=== PATIENT | female | born 1970 | race Caucasian/White ===

== ENCOUNTER 2020-12-09 14:32 | Emergency (ER) | payer OTHER ==
[~2020-12-09] VITALS: Ht 167.6 cm; Wt 120.2 kg
--- NOTE | ~2020-12-09 | EMS ---
[facility] [address] [place] [address] EMS Patient Care Report Name: VANI SMITH Room: [facility] CINTIA Campoverde#: [id number] Admission: 12/09/20 Attend Phys: Discharge: 12/09/20 Date of : 74 Report #: [id number] THIS REPORT FOR: //name// Report Transmitted: 12/09/2020 17:12 EMS Care Summary [facility] [place] Incident [id number] @ 12/09/2020 14:00 Incident Location [address] [place] [address] Patient VANI SMITH Female, 50 Years 1970 Patient Address [address] [place] [address] Patient History Endocrine Condition - Other, Patient Allergies , Patient Medications , Chief Complaint Shortness of Breath Disposition Transported No Lights/[place] Dispatch Reason Breathing Problem Transported To [facility] Narrative [facility] WAS DISPATCHED TO A FEMALE WITH SHORTNESS OF BREATH. ON SCENE THE PATIENT WAS SITTING ON THE GROUND BEHIND THE CUSTOMER SERVICE DESK. THE PATIENT WAS SITTING ON THE GROUND CRYING. PATIENT STATED THAT THIS HAS HAPPENED BEFORE BEFORE THE DOCTORS DIDN'T DIAGNOSE WITH HER WITH ANYTHING. PATIENT HAD CLEAR [facility] [address] [place] [address] EMS Patient Care Report Name: VANI SMITH [id number] Admission: 12/09/20 Attend Phys: Discharge: 12/09/20 Date of : 74 Report #: [id number] LUNG SOUNDS AND HER VITALS WERE ASSESSED. PATIENT WAS ASKED IF SHE WANTED TO GO THE AMBULANCE SO THERE WAS MORE PRIVACY. THE PATIENT ASKED FOR O ASK ONE HER CO-WORKERS TO GET HER PERSONAL THINGS. HER CO-WORKER WALKED HER PERSONAL THINGS BEHIND US THE patient WAS BEING TAKEN TO THE AMBULANCE. IN THE AMBULANCE, patients WAS PLACE ON OXYGEN FOR COMFORT AND WAS COACHED THROUGH HER BREATHING. THE PATIENTS BLOOD SUGAR WAS ASSESSED. PATIENT WAS ASKED WHAT HOSPITAL SHE WANTED TO GO TO. THE PATIENT STATED THAT SHE IS KNEW AROUND HERE. PATIENT STATED SHE LIVES IN [facility], PATIENT WAS TOLD THAT THE CLOSED HOSPITAL TO HOME FROM HERE IS [facility] PATIENT AGREED. WHILE IN ROUTE PATIENT WAS ABLE TO GIVE ALL MEDICAL AND DEMOGRAPHIC information. PATIENT WAS TRANSPORTED IN POSITION OF comfort. THERE WAS NO notable change IN PATIENT CONDITION. patient WAS ALERT AND oriented. patient FELT ALOT BETTER WHILE IN ROUTE, PATIENT WAS ABLE TO SLOW HER BREATHING DOWN AND SHE FELT MUCH BETTER. PATIENT WAS ABLE TO SIGN FOR HERSELF. AT THE HOSPITAL THE PATIENT WAS TAKEN TO ROOM 3. THERE THE PATIENT WAS ALLOWED TO STAND UP AND WALK. PATIENT INFORMATION WAS GIVEN TO A NURSE, AND REPORT WAS GIVEN TO RECEIVING NURSE. THE NURSE SIGNED FOR PATIENT CARE. A FACESHEET WAS obtained AND EMS DEPARTED THE HOSPITAL. --END-- Initial Vitals @14:10SpO2: 100, @14:11SpO2: 100, @14:12SpO2: 100, @14:16SpO2: 100, @14:20SpO2: 100, @14:21SpO2: 100, @14:23SpO2: 100, @14:24SpO2: 100, @14:25SpO2: 100, @14:26SpO2: 100, @14:10P: 97,R: 24,BP: 159/99, @14:26P: 84,R: 18,BP: 119/66, @14:18IdQV8: 23, @14:49SsJK8: 32, @14:38YtQX0: 31, @14:96ZcVG6: 31, @14:54HbAZ2: 31, @14:10GCS: 15, @14:26GCS: 15, @14:23 @14:14Glucose: 279, Assessments @14:06MENTAL:SKIN:HEENT:LUNG SOUNDS:ABDOMEN:PELVIS//GI:EXTREMITIES:PULSE:NE[place]O: [place] [address] EMS Patient Care Report Name: VANI SMITH [id number] Admission: 12/09/20 Attend Phys: Discharge: 12/09/20 Date of : 74 Report #: [id number] Acute Respiratory Distress (Dyspnea) Procedures @14:12Oxygen Complications: ,Response: Improved@14:78FMIN8 digital capnographyResponse: UnchangedSucceeded@14:83VYAK2 digital capnographyResponse: UnchangedSucceeded@14:23MJOZ6 digital capnographyResponse: UnchangedSucceeded@14:34ONQM6 digital capnographyResponse: UnchangedSucceeded@14:44NQMX6 digital capnographyResponse: UnchangedSucceeded Timeline 13:45,Call Received 13:59,Dispatch Notified 13:59,Psap Call 14:00,Dispatched 14:00,En Route 14:04,On Scene 14:06,At Patient 14:10,BP: / M,PULSE: ,RR: R,SPO2: 100 Ox,ETCO2: ,BG: ,PAIN: ,GCS: , 14:10,BP: 159/99 M,PULSE: 97,RR: 24 R,SPO2: Ox,ETCO2: ,BG: ,PAIN: ,GCS: , 14:10,BP: / M,PULSE: ,RR: R,SPO2: Ox,ETCO2: ,BG: ,PAIN: ,GCS: 15, 14:11,BP: / M,PULSE: ,RR: R,SPO2: 100 Ox,ETCO2: ,BG: ,PAIN: ,GCS: , 14:12,Oxygen Complications: ,,Response: Improved 14:12,BP: / M,PULSE: ,RR: R,SPO2: 100 Ox,ETCO2: ,BG: ,PAIN: ,GCS: , 14:14,BP: / M,PULSE: ,RR: R,SPO2: Ox,ETCO2: ,B,PAIN: ,GCS: , 14:16,ETCO2 digital capnography,Response: UnchangedSucceeded, 14:16,BP: / M,PULSE: ,RR: R,SPO2: 100 Ox,ETCO2: ,BG: ,PAIN: ,GCS: , 14:16,BP: / M,PULSE: ,RR: R,SPO2: Ox,ETCO2: 23 ,BG: ,PAIN: ,GCS: , 14:16,Depart Scene 14:20,ETCO2 digital capnography,Response: UnchangedSucceeded, 14:20,BP: / M,PULSE: ,RR: R,SPO2: 100 Ox,ETCO2: ,BG: ,PAIN: ,GCS: , 14:20,BP: / M,PULSE: ,RR: R,SPO2: Ox,ETCO2: 32 ,BG: ,PAIN: ,GCS: , 14:21,ETCO2 digital capnography,Response: UnchangedSucceeded, 14:21,BP: / M,PULSE: ,RR: R,SPO2: 100 Ox,ETCO2: ,BG: ,PAIN: ,GCS: , 14:21,BP: / M,PULSE: ,RR: R,SPO2: Ox,ETCO2: 31 ,BG: ,PAIN: ,GCS: , 14:23,ETCO2 digital capnography,Response: UnchangedSucceeded, 14:23,BP: / M,PULSE: ,RR: R,SPO2: 100 Ox,ETCO2: ,BG: ,PAIN: ,GCS: , 14:23,BP: / M,PULSE: ,RR: R,SPO2: Ox,ETCO2: 31 ,BG: ,PAIN: ,GCS: , 14:23,BP: / M,PULSE: ,RR: R,SPO2: Ox,ETCO2: ,BG: ,PAIN: ,GCS: , 14:24,ETCO2 digital capnography,Response: UnchangedSucceeded, 14:24,BP: / M,PULSE: ,RR: R,SPO2: 100 Ox,ETCO2: ,BG: ,PAIN: ,GCS: , 14:24,BP: / M,PULSE: ,RR: R,SPO2: Ox,ETCO2: 31 ,BG: ,PAIN: ,GCS: , 14:25,BP: / M,PULSE: ,RR: R,SPO2: 100 Ox,ETCO2: ,BG: ,PAIN: ,GCS: , 14:26,BP: / M,PULSE: ,RR: R,SPO2: 100 Ox,ETCO2: ,BG: ,PAIN: ,GCS: , 14:26,BP: 119/66 M,PULSE: 84,RR: 18 R,SPO2: Ox,ETCO2: ,BG: ,PAIN: ,GCS: , 14:26,BP: / M,PULSE: ,RR: R,SPO2: Ox,ETCO2: ,BG: ,PAIN: ,GCS: 15, 14:28,At Destination [address] [address] EMS Patient Care Report Name: VANI SMITH Room: [facility]#: [id number] Admission: 12/09/20 Attend Phys: Discharge: 12/09/20 Date of : 74 Report #: [id number] 14:39,Call Closed Disclaimer v1.1 Copyright 2020 [employer] This EMS Care Summary contains data elements from the applicable legal record (which may be displayed differently). It is designed to provide pertinent information for the following purposes: continuity of care, clinical quality, and state data reporting. The complete legal record is available to ED staff and administrators of the receiving hospital in [employer]'s Patient Tracker. All data is provided "as is."
[2020-12-09] MEDS ORDERED: CRESTOR5 MG PO (14:39)
[2020-12-09] MEDS ORDERED: GLIMEPIRIDE1 MG PO (14:39)
[2020-12-09] MEDS ORDERED: METFORMIN HCL500 M3 PO (14:39)
[2020-12-09] MEDS ORDERED: LEXAPRO 10 MG T10 M2 PO (14:39)
[2020-12-09] MEDS ORDERED: LISINOPRIL10 MG PO (14:39)
[2020-12-09 15:08] LABS: ABSOLUTE BASOPHILS 0.1 thou/uL (0.0-0.2); ABSOLUTE EOSINOPHILS 0.1 thou/uL (0.0-0.7); ABSOLUTE LYMPHOCYTES 2.7 thou/uL (0.8-5.3); ABSOLUTE MONOCYTES 0.4 thou/uL (0.0-1.2); ABSOLUTE NEUTROPHILS 5.6 thou/uL (1.6-8.1); BASOPHILS 1.1 %; EOSINOPHILS 1.7 %; HEMATOCRIT 38.1 % (37.0-47.0); HEMOGLOBIN 12.7 gm/dL (12.0-15.0); LYMPHOCYTES 30.2 %; MCH 28.7 pg (26.0-34.0); MCHC 33.3 g/dL (28.0-37.0); MCV 86.2 fL (80.0-100.0); MONOCYTES 4.3 %; MPV 7.5 fl. (7.2-11.1); NUCLEATED RBCS 0 /100WBC; PLATELET COUNT* 314 thou/uL (150-400); POLYS 62.7 %; RBC 4.42 mil/uL (4.20-5.00); RDW-CV 13.9 % (10.5-14.5); WBC 8.9 thou/uL (4.0-11.0)
[2020-12-09 15:18] LABS: CALCIUM 8.7 mg/dL (8.5-10.1); POTASSIUM 3.8 mmol/L (3.5-5.1)
[2020-12-09 15:23] LABS: ALBUMIN 2.8 g/dL (3.4-5.0); TOTAL BILIRUBIN 0.4 mg/dL (<0.1-1.0); TOTAL PROTEIN 8.1 g/dL (6.4-8.2)
[2020-12-09] MEDS ORDERED: HYDROXYZINE HCL25 M2 PO (15:52)
[2020-12-09 16:39] VITALS: BP 124/72
--- NOTE | 2020-12-10 10:22 | EKG ---
[place] [address] ELECTROCARDIOGRAM REPORT Name: VANI SMITH Room: [facility]#: [id number] Admission: 12/09/20 Attend Phys: Discharge: 12/09/20 Date of : 74 Date of Service: 12/09/20 1513 Report #: [id number] THIS REPORT FOR: //name// [facility] ED Test Date: 2020-12-09 Test Time: 15:13:33 Pat Name: VANI SMITH Department: Room: Gender: Armored Car Driver: : 1970 Requested By: Miky Knight Order Number: [id number] MD: Evan Mcclendon Measurements Intervals [place] Rate: 78 P: 59 UT: 161 QRS: 7 QRSD: 88 T: 13 QT: 390 QTc: 445 Interpretive Statements Sinus rhythm Probable left atrial enlargement Low voltage, precordial leads No previous ECG available for comparison Electronically Signed On 12-10-2020 10:22:10 CDT by Evan Mcclendon [email or web address] <ELECTRONICALLY SIGNED> By: Evan Mcclendon MD, [facility] 12/10/20 1022 1513 1513 Evan Mcclendon MD, [facility] /EPI
== END 2020-12-09 16:40 | disposition home or self-care (01) ==
LOC: M.ERS 14:32
PROVIDERS: Physician Assistant
DX: F41.0 Panic disorder [episodic paroxysmal anxiety] (principal); E11.65 Type 2 diabetes mellitus with hyperglycemia; F32.9 Major depressive disorder, single episode, unspecified; I10 Essential (primary) hypertension; Z88.1 Allergy status to other antibiotic agents; Z79.899 Other long term (current) drug therapy